=== PATIENT | female | born 1985 | race African-American/Black ===

== ENCOUNTER 2017-10-27 22:43 | Emergency (ER) | payer OTHER ==
[~2017-10-27] VITALS: Ht 170.2 cm; Wt 66.2 kg
--- NOTE | 2017-10-28 00:08 | ED GI/GU/ABDOMINAL COMPLAINT ---
History of Present Illness General Chief Complaint: Female Urogenital Problems Stated Complaint: ABD/FLANK PAIN X 3 DAYS +N-V-D, HAWK, NIGHTSWEATS Source: patient, old records Exam Limitations: no limitations Allergies Coded Allergies: tree nut (ANAPHYLAXIS 10/27/17) Triage Note: PT TO ED C/O LEFT SIDE PAIN THAT GOES TO L GROIN AND WRAPS TO BACK. STARTED 3 DAYS AGO, WORSE FOR THE LAST 2 DAYS. DNEINES UTI S/S. C/O +NAUSEA, CHILLS AND HEADACHE. PMH OF KIDNEY INFECTION. "IT KIND OF FEELS LIKE THAT" PMH OF ECTOPIC Triage Nurses Notes Reviewed? yes HPI: 32F PMH pyelo x2 in the past, left sided ectopic s/p laparascopic surgery in Jun 2016 presenting with 3 days of worsening left flank pain radiating to left inguinal area, 10/10, stabbing, along with fever, chills, diaphoresis, decreased appetite, and decreased PO intake. Symptoms consistent with prior episodes of pyelonephritis. Denies headache, stiff neck, sore throat ,chest pain, SOB, diarrhea, constipation. (Jaky MANCILLA,Izabella) Vital Signs & Intake/Output Vital Signs & Intake/Output Vital Signs Date Time Temp Pulse Resp B/P B/P Pulse O2 O2 Flow FiO2 Mean Ox Delivery Rate 10/28 0052 100.6 93 20 121/72 99 06/08 2250 100.7 91 18 126/72 97 Room Air ED Intake and Output / 0000 06 1200 Intake Total Output Total Balance Patient 66.224 kg Weight Weight Reported by Patient Measurement Method Reconcile Medications Ciprofloxacin HCl (Cipro) 500 MG TABLET 1 TAB PO BID PYELONEPHRITIS Ibuprofen 600 MG TABLET 1 TAB PO TID PRN PAIN with food ? n Is pt currently ? No (Shawanda MANCILLA,Stef Hernandez) Past History Travel History Traveled to [place] past 21 day No Medical History Any Pertinent Medical History? see below for history Neurological: NONE EENT: NONE Cardiovascular: NONE Respiratory: NONE Gastrointestinal: NONE Hepatic: NONE Renal: PYLONEPHRITIS Musculoskeletal: NONE Psychiatric: NONE Endocrine: NONE ASSOCIATE MERCHANDISER/Reproductive: ECTOPIC PREG Surgical History Surgical History: laparascopic ectopic Psychosocial History What is your primary language Portuguese Tobacco Use: Never used ETOH Use: occasional use Illicit Drug Use: marijuana Family History Hx Contributory? No (Izabella Nava MD) Review of Systems Review of Systems Constitutional: Reports: no symptoms. EENTM: Reports: no symptoms. Respiratory: Reports: no symptoms. Cardiovascular: Reports: no symptoms. GI: Reports: no symptoms. Genitourinary: Reports: no symptoms. Musculoskeletal: Reports: no symptoms. Skin: Reports: no symptoms. Neurological/Psychological: Reports: no symptoms. Hematologic/Endocrine: Reports: no symptoms. Immunologic/Allergic: Reports: no symptoms. All Other Systems: Reviewed and Negative (Izabella Nava MD) Physical Exam Physical Exam General Appearance: well developed/nourished, no apparent distress Head: atraumatic, normal appearance Eyes: Bilateral: normal appearance. Ears, Nose, Throat, Mouth: dry mucous membranes Neck: normal inspection, supple, full range of motion Respiratory: normal breath sounds, no respiratory distress Cardiovascular: regular rate/rhythm Gastrointestinal: tender LLQ, +left CVA tenderness Back: normal inspection, normal range of motion Extremities: normal range of motion Neurologic/Psych: awake, alert, oriented x 3, normal mood/affect Skin: intact, normal color, warm/dry Core Measures ACS in differential dx? No Sepsis Present: No Sepsis Focused Exam Completed? No (Izabella Nava MD) Progress Differential Diagnosis: appendicitis, biliary colic, cholecystitis, ectopic , hernia, kidney stone, UTI/pyelo Initial ED EKG: none (Izabella Nava MD) Plan of Care: Orders Procedure Date/time Status BLOOD CULTURE 10/28 0007 Active LIPASE 10/27 230 Complete HEPATIC FUNCTION PANEL 10/27 2308 Complete CBC WITHOUT DIFFERENTIAL 10/28 2307 Complete BASIC METABOLIC PANEL 10/27 2308 Complete AMYLASE 10/27 230 Complete URINE 10/27 225 Complete URINALYSIS 10/27 225 Complete Current Medications Sig/Edilberto Start time Last Medication Dose Stop Time Status Admin Acetaminophen 1,000 MG ONCE ONE 10/28 199 UNVr 10/28 (Ofirmev) 10/28 0214 0201 N/A 1 UNIT (No Carrier) Ketorolac 30 MG ONCE ONE 10/28 199 UNVr 10/28 Tromethamine 10/28 020 0201 (Toradol) Laboratory Tests 10/28/17 0020: Anion Gap 13, Estimated GFR > 60, BUN/Creatinine Ratio 6.3 L, Glucose 94, Calcium 9.0, Total Bilirubin 0.8, Direct Bilirubin 0.1, AST 16, ALT 30, Alkaline Phosphatase 59, Total Protein 7.3, Albumin 3.9, Amylase 52, Lipase 31, CBC w Diff MAN DIFF ORDERED, RBC 4.01 L, MCV 85.0, MCH 28.6, MCHC 33.6, RDW 12.9, MPV 7.9, Gran % 76.4 H, Lymphocytes % 11.7 L, Monocytes % 11.5 H, Eosinophils % 0.2, Basophils % 0.2, Absolute Granulocytes 12.3 H, Absolute Lymphocytes 1.9, Absolute Monocytes 1.8 H, Absolute Eosinophils 0, Absolute Basophils 0, Platelet Estimate ADEQUATE, Normocytic RBCs VERIFIED, Normochromic RBCs VERIFIED 10/28/17 0007: Sodium Cancelled, Potassium Cancelled, Chloride Cancelled, Carbon Dioxide Cancelled, Anion Gap Cancelled, BUN Cancelled, Creatinine Cancelled, BUN/ Creatinine Ratio Cancelled, Glucose Cancelled, Calcium Cancelled, Total Bilirubin Cancelled, AST Cancelled, ALT Cancelled, Alkaline Phosphatase Cancelled, Total Protein Cancelled, Albumin Cancelled, Globulin Cancelled, Albumin/Globulin Ratio Cancelled 10/27/17 2304: Urinalysis LIGHT H, Urine Color YEL, Urine Clarity CLDY H, Urine pH 6.0, Ur Specific Mcclave 1.015, Urine Protein TRACE H, Urine Ketones 40 H, Urine Nitrite POS H, Urine Bilirubin NEG, Urine Urobilinogen 0.2, Ur Leukocyte Esterase TRACE H, Ur Microscopic SEDIMENT EXAMINED, Urine RBC 1-3, Urine WBC 5- 10 H, Ur Epithelial Cells MANY H, Urine Bacteria PACKD H, Urine Mucus RARE, Urine Hemoglobin MOD H, Urine Glucose NEG, Urine Test NEGATIVE Microbiology 10/29 27 BLOOD: Blood Culture - RECD 10/29 19 BLOOD: Blood Culture - RECD Diagnostic Imaging: Viewed by Me: CT Scan. Discussed w/RAD: CT Scan. Radiology Impression: PATIENT: JV BECKER PRESENT AGE: 32 PATIENT ACCOUNT NO: [id number] : 86 LOCATION: [facility] ORDERING PHYSICIAN: Izabella Nava MD SERVICE DATE: 10/28/17 EXAM TYPE: CAT - CT ABD & PELVIS W/O IV CONTRAS EXAMINATION: CT ABDOMEN AND PELVIS WITHOUT CONTRAST CLINICAL INFORMATION: Left flank and inguinal pain with fevers, suspect pyelonephritis, rule out obstruction COMPARISON: None TECHNIQUE: Multidetector volumetric imaging was performed from the superior aspect of the liver through the pubic symphysis. Sagittal and coronal reformatted images were obtained on the technologist's workstation. DLP: 276.14 mGy-cm FINDINGS: LUNG BASES: There is mild dependent atelectasis at the lung bases. LIVER, GALLBLADDER, AND BILIARY TREE: The liver is normal in size, shape, and attenuation. No focal hepatic lesion or biliary ductal dilatation is present. The gallbladder is unremarkable. PANCREAS: Unremarkable. SPLEEN: Unremarkable. ADRENAL GLANDS: Unremarkable. KIDNEYS AND URETERS: The kidneys are normal in size, shape, and attenuation. No hydronephrosis, hydroureter, or calculi seen. No perinephric stranding. BLADDER: Unremarkable. GASTROINTESTINAL TRACT: No evidence of bowel obstruction. No significant bowel wall thickening is seen. Trace fluid is noted in the right paracolic gutter. The appendix is unremarkable. No free air is seen. ABDOMINAL WALL: No significant hernia is appreciated. LYMPH NODES: No definite lymphadenopathy is seen, though assessment is somewhat limited in the absence of intravenous contrast. There are scattered retroperitoneal lymph nodes which appear subcentimeter in size. VASCULAR: Unremarkable. PELVIC VISCERA: Unremarkable. There may be trace pelvic free fluid. OSSEOUS STRUCTURES: Unremarkable. IMPRESSION: 1. No hydronephrosis or obstructing calculus bilaterally. 2. Trace fluid in the right paracolic gutter, of uncertain etiology/significance. DICTATED BY: Panchito Goncalves MD DATE/TIME DICTATED:204 TECHNOLOGY COACH:KATJA DATE/TIME TRANSCRIBED:10/28/17204 CONFIDENTIAL, DO NOT COPY WITHOUT APPROPRIATE AUTHORIZATION. <Electronically signed in Other Vendor System> SIGNED BY: Panchito Goncalves MD 10/28/17 0217 (Shawanda MANCILLA,Stef Hernandez) Departure Departure Condition: Stable Referrals: Patient Has No Primary Care Dr (PCP/Family) Departure Forms: Customer Survey General Discharge Information (Jaky MANCILLA,Izabella) Departure Disposition: HOME OR SELF CARE Clinical Impression Primary Impression: Pyelonephritis Prescriptions: Current Visit Scripts Ciprofloxacin HCl (Cipro) 1 TAB PO BID #20 TAB Ibuprofen 1 TAB PO TID PRN PAIN #30 TAB with food Comments 10/28, 1am.. pt signed out to me by dr. nava. 10/28, 2:29AM... pt reports feeling more comfortable after toradol and tylenol IV... ct scan benign, labs and history suggestive of pyelo... pt given ceftriaxone w/ cipro PO... close follow up encouraged. (Shawanda MANCILLA,Stef Hernandez)
[2017-10-28 00:43] LABS: ABSOLUTE BASOPHIL COUNT 0 /CUMM (0.0-0.2); ABSOLUTE EOSINOPHIL COUNT 0 /CUMM (0.0-0.7); ABSOLUTE GRANULOCYTE CT 12.3 /CUMM (1.4-6.5); ABSOLUTE LYMPH COUNT 1.9 /CUMM (1.2-3.4); ABSOLUTE MONOCYTE COUNT 1.8 /CUMM (0.10-0.60); BASOPHIL % 0.2 % (0.0-2.0); EOSINOPHIL % 0.2 % (0-5); GRANULOCYTE % 76.4 % (42.2-75.2); HEMATOCRIT 34.1 % (37-47); MEAN CORPUSCULAR HGB 28.6 PG (27.0-31.0); MEAN CORPUSCULAR HGB CONC 33.6 G/DL (33.0-37.0); MEAN PLATELET VOLUME 7.9 FL (7.4-10.4); PLATELET COUNT 280 /CUMM (130-400); RBC DISTRIBUTION WIDTH 12.9 % (11.5-14.5); RED BLOOD CELL CT 4.01 /CUMM (4.20-5.40); WHITE BLOOD CELL COUNT 16.1 /CUMM (4.8-10.8)
--- NOTE | 2017-10-28 02:17 | CT SCAN REPORT ---
EXAMINATION: CT ABDOMEN AND PELVIS WITHOUT CONTRAST CLINICAL INFORMATION: Left flank and inguinal pain with fevers, suspect pyelonephritis, rule out obstruction COMPARISON: None TECHNIQUE: Multidetector volumetric imaging was performed from the superior aspect of the liver through the pubic symphysis. Sagittal and coronal reformatted images were obtained on the technologist's workstation. DLP: 276.14 mGy-cm FINDINGS: LUNG BASES: There is mild dependent atelectasis at the lung bases. LIVER, GALLBLADDER, AND BILIARY TREE: The liver is normal in size, shape, and attenuation. No focal hepatic lesion or biliary ductal dilatation is present. The gallbladder is unremarkable. PANCREAS: Unremarkable. SPLEEN: Unremarkable. ADRENAL GLANDS: Unremarkable. KIDNEYS AND URETERS: The kidneys are normal in size, shape, and attenuation. No hydronephrosis, hydroureter, or calculi seen. No perinephric stranding. BLADDER: Unremarkable. GASTROINTESTINAL TRACT: No evidence of bowel obstruction. No significant bowel wall thickening is seen. Trace fluid is noted in the right paracolic gutter. The appendix is unremarkable. No free air is seen. ABDOMINAL WALL: No significant hernia is appreciated. LYMPH NODES: No definite lymphadenopathy is seen, though assessment is somewhat limited in the absence of intravenous contrast. There are scattered retroperitoneal lymph nodes which appear subcentimeter in size. VASCULAR: Unremarkable. PELVIC VISCERA: Unremarkable. There may be trace pelvic free fluid. OSSEOUS STRUCTURES: Unremarkable. IMPRESSION: 1. No hydronephrosis or obstructing calculus bilaterally. 2. Trace fluid in the right paracolic gutter, of uncertain etiology/significance.
[2017-10-28] MEDS ORDERED: IBUPROFEN600 M1 PO (02:28)
[2017-10-28] MEDS ORDERED: CIPRO500 M1 PO (02:28)
[2017-10-28 02:46] VITALS: BP 121/60
== END 2017-10-28 02:52 ==
LOC: ERH 22:43
PROVIDERS: Pediatrics
DX: N12 Tubulo-interstitial nephritis, not specified as acute or chronic (principal); R50.9 Fever, unspecified
CPT/HCPCS: 74176; 81001; 81025; 87040; 96361; 96374; 96375; J0131; J0696; J1885; J2405